=== PATIENT | female | born 1955 | race Two or more races ===

== ENCOUNTER 2021-05-02 09:41 | Inpatient (IN) | payer MEDICARE, MEDICAID ==
[2021-04-23 14:51] LABS: BASOPHILS % (AUTO) 0.7 % (0-1); EOSINOPHILS # (AUTO) 0.1 X10'3 (0-0.9); EOSINOPHILS % (AUTO) 1.6 % (0-6); LYMPHOCYTES # (AUTO) 1.7 X10'3 (1.1-4.8); LYMPHOCYTES % (AUTO) 28.4 % (21-51); MEAN CORPUSCULAR HEMOGLOBIN 31.9 PG (27.0-31.0); MEAN CORPUSCULAR HGB CONC 33.8 g/dL (33.0-36.5); MEAN CORPUSCULAR VOLUME 94.3 FL (78-98); MEAN PLATELET VOLUME 8.4 FL (7.4-10.4); MONOCYTES # (AUTO) 0.5 X10'3 (0-0.9); MONOCYTES % (AUTO) 7.8 % (2-12); NEUTROPHILS # (AUTO) 3.6 X10'3 (1.8-7.7); NEUTROPHILS % (AUTO) 61.5 % (42-75); PRE OP HEMATOCRIT 40.6 % (35.0-45.0); PRE OP HEMOGLOBIN 13.8 g/dL (12.0-16.0); PRE OP PLATELET COUNT 244 X10'3 (140-440); RED BLOOD COUNT 4.31 X10'6 (4.20-5.60)
[2021-04-23 15:06] LABS: ALBUMIN 3.4 G/DL (3.4-5.0); ALBUMIN/GLOBULIN RATIO 0.9 (1.1-1.5); ALKALINE PHOSPHATASE 107 IU/L (46-116); BLOOD UREA NITROGEN 12 MG/DL (7-18); BUN/CREATININE RATIO 15.2 (6.6-38.0); CALCIUM 8.6 MG/DL (8.5-10.1); CHLORIDE 104 MMOL/L (99-107); CREATININE 0.79 MG/DL (0.40-0.90); PRE OP ALT 26 U/L (30-65); PRE OP ANION GAP 9 (8-16); PRE OP AST 15 U/L (10-37); PRE OP BILIRUB, TOTAL 0.3 MG/DL (0.0-1.0); PRE OP GLUCOSE 112 MG/DL (70-104); PRE OP SODIUM 141 MMOL/L (135-145); TOTAL CARBON DIOXIDE 27.9 MMOL/L (24-32); TOTAL PROTEIN 7.2 G/DL (6.4-8.2); eGFR 74 ML/MIN
[2021-04-23 15:12] LABS: PRE OP POTASSIUM 3.3 MMOL/L (3.4-5.1)
[2021-05-02] VITALS (31 sets, daily range): BP systolic 112–187; BP diastolic 69–98
[~2021-05-02] VITALS: Ht 162.6 cm; Wt 79.3 kg
[~2021-05-02 09:41] MED LIST: ALEN70TA15 PO; CALC-1215 PO; DESV100T PO; NAPR-56 PO; OMEG-79 PO; OXYB5TAB16 PO; SUMA50TA17 PO; VITA400C71 PO; [UNRECOGNIZED DRUG - OTHER] PO; cefazolin/dext.iso 2gm/50ml 50 ML IV ONE; famotidine 20mg tablet PO ONE; ringers solution, lacted 1,000 ML IV SCH; tranexamic acid 1gm/0.7% sal. 100 ML IV ONE; vancomycin 1,500 MG in NS 300ml IV soln IV ONE
[2021-05-02] MEDS ORDERED: vancomycin 1,000mg inj ONE ×2 (09:52→10:48)
[2021-05-02] MEDS ORDERED: ROPIVAcaine inj 200 MG, ketorolac trometh inj. 15 MG, epiNEPHrine inj 0.6 MG, morphine ... IU ONE ×5 (10:45)
[2021-05-02 10:50] LABS: ISTAT ANION GAP 8 (8-12); ISTAT BUN 7 mg/dL (7-18); ISTAT CL 105 mmol/L (99-107); ISTAT CREATININE 0.6 mg/dL (0.6-1.1); ISTAT GLUCOSE 113 mg/dL (70-105); ISTAT HGB 12.9 g/dl (12.0-16.0); ISTAT Hct 38 %PCV (35-48); ISTAT IONIZED CALCIUM 1.03 mmol/L (1.03-1.32); ISTAT K 3.8 mmol/L (3.5-5.1); ISTAT NA 139 mmol/L (135-145); ISTAT TOTAL CO2 26 mmol/L (24-32); ISTAT eGFR > 90 ML/MIN; POC BUN/CREATININE RATIO 11.7 (6.6-38.0)
[2021-05-02] MEDS ORDERED: fentaNYL/PF 50MCG/1 ML 2ML syringe ONE ×2 (11:15→13:06)
[2021-05-02] MEDS ORDERED: MIDAZolam 1 MG/ML 5ML VIAL ONE (11:16)
[2021-05-02] MEDS ORDERED: ringers solution, lacted 1,000 ML IV SCH (11:55)
[2021-05-02] MEDS ORDERED: meperidine/PF 25mg/ml syringe IV PRN ×3 (11:55)
[2021-05-02] MEDS ORDERED: proCHLORperazine 10 MG/2 ml inj IV PRN (11:55)
[2021-05-02] MEDS ORDERED: ondansetron/PF 4mg/2ml inj IV PRN ×2 (11:55→14:05)
[2021-05-02] MEDS ORDERED: morphine 2 MG/ML inj. syringe IV PRN (11:55)
[2021-05-02] MEDS ORDERED: ROPIVAcaine 0.2% (10 MG/5 ML) BOLUS INJECTION ADDCANAL PRN (11:55)
[2021-05-02] MEDS ORDERED: propofol inj 40 ML IV ONE (13:06)
[2021-05-02] MEDS ORDERED: LIDOcaine 1%/PF 5ML 10 MG/ML VIAL ONE (13:06)
[2021-05-02] MEDS ORDERED: ROPIVAcaine 0.5% (5mg/ml) 30ml vial ONE (13:07)
[2021-05-02] MEDS ORDERED: ePHEDrine 50MG/ML INJ. ONE ×2 (13:07→13:33)
[2021-05-02] MEDS ORDERED: dexamethasone sod phosphate 4mg/ml inj. ONE (13:07)
--- NOTE | 2021-05-02 13:58 | NUR ---
Received from OR via bed, accompanied by Anesthesiologist DR. PALACIOS and report given by Anesthesiolgist AND OR NURSE. PT ARRIVED DROWSY, BREATHING UNLABORED ON ROOM AIR. 20G IV TO RIGHT HAND. VSS. RIGHT KNEE WRAPPED C/D/I WITH POWDER PACK IN PLACE. Addendum: 05/02/21 at 1417 by Lucy Sultana RN Amended: Links added.
[2021-05-02] MEDS: potassium cl 20mEq in 1/2 NS 1,000 ML IV SCH ×2 (14:05→21:10)
[2021-05-02] MEDS ORDERED: diphenhydrAMINE 25mg capsule PO PRN ×2 (14:05)
[2021-05-02] MEDS ORDERED: HYDROmorphone 1 mg/ml syringe IV PRN (14:05)
[2021-05-02] MEDS ORDERED: acetaminophen 325mg tablet PO PRN (14:05)
[2021-05-02] MEDS ORDERED: bisacodyl 10mg suppository rectal RC PRN (14:05)
[2021-05-02] MEDS ORDERED: magnesium hydroxide 30ml (MOM) UD suspension PO PRN (14:05)
[2021-05-02] MEDS: ROPIVAcaine 0.2%/PF PUMP/bolus 545 ML ADDCANAL SCH (14:24)
[2021-05-02] MEDS: morphine 4 MG/ML inj SYRINge IV PRN ×2 (15:24→16:05)
[2021-05-02] MEDS ORDERED: non-formulary drug (Alendronate Sodium (Fosamax) 1 TAB) PO SCH (16:50)
[2021-05-02] MEDS ORDERED: SUMAtriptan 25 MG tablet PO PRN (16:50)
[2021-05-02] MEDS ORDERED: tranexamic acid 1gm/0.7% sal. 100 ML IV ONE (17:00)
--- NOTE | 2021-05-02 17:08 | NUR ---
Report called to receiving nurse Paige. Transferred via BED WITH LABELED Belongings, glasses, dentures, clothing and rings that pt had on hand AND sent to room. Special Issues communicated to receiving nurse. VSS. PT APPEARED COMFORTABLE WITH MINIMAL PAIN. RIGHT KNEE BANDAGE C/D/I. PT BED LOW, 2 RAILS UP, CALL LIGHT PRESENT. RN AT BEDSIDE ASSUMING CARE. Addendum: 05/02/21 at 1719 by Lucy Sultana RN Amended: Links added.
[2021-05-02] MEDS: oxyCODONE IR 5mg (immed. release) tablet PO PRN (18:56)
[2021-05-02] MEDS ORDERED: vancomycin/NS 1 GM ADD-VANTAGE 250 ML IV SCH (20:00)
[2021-05-02] MEDS: ceFAZolin/D5W- 1GM premix 50 ML IV SCH ×2 (20:06→23:36)
[2021-05-02] MEDS: gabapentin 300mg capsule PO SCH (21:10)
[2021-05-02] MEDS: oxybutynin 5mg tablet PO SCH (21:11)
[2021-05-02] MEDS: calcium carbonate/vitamin D3 tablet PO SCH (21:11)
[2021-05-02] MEDS: acetaminophen 325mg tablet PO SCH (21:12)
[2021-05-02] MEDS: sennosides 8.6mg tablet PO SCH (21:12)
[2021-05-03] VITALS: BP 126/81
[2021-05-03] MEDS: acetaminophen 325mg tablet PO SCH ×5 (02:00→20:12)
[2021-05-03 04:00] VITALS: BP 124/69
[2021-05-03] MEDS: oxyCODONE IR 5mg (immed. release) tablet PO PRN ×2 (05:41→20:05)
--- NOTE | 2021-05-03 05:43 | NUR ---
premedicated patient prior to PT. unable to scan at that time as banquet food server was not responding.
--- NOTE | 2021-05-03 06:23 | NUR ---
Problems reprioritized. Patient report given, questions answered & plan of care reviewed with YADIRA Porras.
[2021-05-03] MEDS: potassium cl 20mEq in 1/2 NS 1,000 ML IV SCH ×3 (06:35→22:30)
[2021-05-03] MEDS ORDERED: [UNRECOGNIZED DRUG - OTHER] PO SCH (08:00)
[2021-05-03] MEDS ORDERED: enoxaparin 40mg/0.4ml syringe SQ SCH (08:00)
[2021-05-03] MEDS: venlafaxine 25mg tablet PO SCH ×3 (09:00→20:03)
[2021-05-03] MEDS: calcium carbonate/vitamin D3 tablet PO SCH ×2 (09:00→20:04)
[2021-05-03] MEDS: oxybutynin 5mg tablet PO SCH ×2 (09:00→20:04)
[2021-05-03] MEDS: gabapentin 300mg capsule PO SCH ×3 (09:00→20:04)
[2021-05-03] MEDS: HYDROmorphone inj. 0.5 MG/0.5 ML DISP.SYRIN IV PRN (09:01)
[2021-05-03 19:00] VITALS: BP 105/60
[2021-05-03] MEDS: sennosides 8.6mg tablet PO SCH (20:03)
[2021-05-03] MEDS: celeCOXIB 100mg capsule PO SCH (20:04)
[2021-05-03 23:59] VITALS: BP 110/60
[2021-05-04] MEDS: potassium cl 20mEq in 1/2 NS 1,000 ML IV SCH (06:05)
[2021-05-04] MEDS: acetaminophen 325mg tablet PO SCH ×2 (07:18→14:00)
[2021-05-04] MEDS: oxyCODONE IR 5mg (immed. release) tablet PO PRN ×2 (07:18→20:25)
[2021-05-04] MEDS: calcium carbonate/vitamin D3 tablet PO SCH ×2 (07:19→20:08)
[2021-05-04] MEDS: oxybutynin 5mg tablet PO SCH ×2 (07:19→20:08)
[2021-05-04] MEDS: venlafaxine 25mg tablet PO SCH ×3 (07:19→20:09)
[2021-05-04] MEDS: gabapentin 300mg capsule PO SCH ×3 (07:21→20:09)
[2021-05-04] MEDS: celeCOXIB 100mg capsule PO SCH ×2 (07:21→20:08)
[2021-05-04] MEDS ORDERED: enoxaparin 30mg/0.3ml syringe SUBCUT SCH (08:00)
[2021-05-04] MEDS: ROPIVAcaine 0.2%/PF PUMP/bolus 545 ML ADDCANAL SCH (14:00)
[2021-05-04] MEDS ORDERED: acetaminophen 325mg tablet PO PRN (14:05)
[2021-05-04 20:00] VITALS: BP 127/74
[2021-05-04] MEDS: sennosides 8.6mg tablet PO SCH (20:09)
[2021-05-05] VITALS: BP 122/58
--- NOTE | 2021-05-05 06:20 | NUR ---
Problems reprioritized. Patient report given, questions answered & plan of care reviewed with YADIRA Porras .
[2021-05-05 07:00] VITALS: BP 117/72
[2021-05-05] MEDS: celeCOXIB 100mg capsule PO SCH ×2 (07:19→20:13)
[2021-05-05] MEDS: oxybutynin 5mg tablet PO SCH ×2 (07:19→20:10)
[2021-05-05] MEDS: venlafaxine 25mg tablet PO SCH ×3 (07:19→20:10)
[2021-05-05] MEDS: calcium carbonate/vitamin D3 tablet PO SCH ×2 (07:19→20:11)
[2021-05-05] MEDS: gabapentin 300mg capsule PO SCH ×3 (07:19→20:11)
[2021-05-05] MEDS: oxyCODONE IR 5mg (immed. release) tablet PO PRN ×2 (07:19→19:28)
[2021-05-05] MEDS: HYDROmorphone inj. 0.5 MG/0.5 ML DISP.SYRIN IV PRN (11:53)
[2021-05-05 12:55] VITALS: BP 112/70
--- NOTE | 2021-05-05 18:22 | NUR ---
Patient in room [address]. I have received report from EMELY ALCANTARA RN and had the opportunity to ask questions and assume patient care. Addendum: 05/05/21 at 1823 by Viki Wallace RN Amended: Links added.
--- NOTE | 2021-05-05 19:35 | NUR ---
pt c/o constipation wants to hold off pain med due to it ate very little of tray due to this and given per request a brown jatin prune juice mix to drink. Addendum: 05/06/21 at 0132 by Viki Wallace RN wrong pt she had a bm this am took hs meds no complaints at this time.
[2021-05-05 19:40] VITALS: BP 131/74
[2021-05-05] MEDS: sennosides 8.6mg tablet PO SCH (20:10)
--- NOTE | 2021-05-05 20:30 | NUR ---
pt used bedpan it leaked hs care done and repositioned in bed for comfort after liens changed.
[2021-05-06 00:22] VITALS: BP 143/75
--- NOTE | 2021-05-06 00:25 | NUR ---
up with assist of one and walker [place] [facility] [place] no results passed flatus. back to bed given a second brown jatin prune juice warm mix per request and will try again around 5am per pt request. voiding well in urinal without issues. Addendum: 05/06/21 at 0131 by Viki Wallace RN note on wrong pt she is resting eyes closed without s&s of distress appears comfortable at this time. vss.
--- NOTE | 2021-05-06 06:10 | NUR ---
Problems reprioritized. Patient report given, questions answered & plan of care reviewed with LARISSA MAY. Addendum: 05/06/21 at 0611 by Viki Wallace RN Amended: Links added.
--- NOTE | 2021-05-06 06:24 | NUR ---
Patient in room [address]. I have received report from Viki amaya and had the opportunity to ask questions and assume patient care.
[2021-05-06 06:34] VITALS: BP 118/74
[2021-05-06] MEDS: calcium carbonate/vitamin D3 tablet PO SCH (07:23)
[2021-05-06] MEDS: celeCOXIB 100mg capsule PO SCH (07:23)
[2021-05-06] MEDS: oxybutynin 5mg tablet PO SCH (07:23)
[2021-05-06] MEDS: gabapentin 300mg capsule PO SCH ×2 (07:23→13:09)
[2021-05-06] MEDS: venlafaxine 25mg tablet PO SCH ×2 (07:23→13:08)
[2021-05-06] MEDS: oxyCODONE IR 5mg (immed. release) tablet PO PRN ×3 (07:34→17:42)
[2021-05-06] MEDS ORDERED: aspirin 81mg, enteric-coated 1 TAB TABLET.DR PO SCH (08:00)
[2021-05-06 11:00] VITALS: BP 113/62
[2021-05-06] MEDS: ROPIVAcaine 0.2%/PF PUMP/bolus 545 ML ADDCANAL SCH ×2 (11:55→17:43)
--- NOTE | 2021-05-06 13:07 | NUR ---
Initial: Pt s/p total arthroplasty of R knee 05/02. Pt currently on Regular diet eating mostly 75% of meals meeting needs. LBM 05/05 receiving routine senna. High protein diet education w/ RD contact info placed in pt chart as pt unavailable at time of assessment. No nutrition intervention implemented at this time, will continue to monitor. Recs: 1. Continue Regular diet as tolerated 2. Bowel care per rx 3. Weekly wts Addendum: 05/06/21 at [address] Amended: Links added.
--- NOTE | 2021-05-06 17:17 | NUR ---
pt stated she is OK with waiting till tomorrow to get pain med prescription from Dr. Bunch. I Educated pt on how to use the ON Q pump and how she can titrate it up and down as needed for pain.
--- NOTE | 2021-05-06 17:54 | NUR ---
pt IV is DC and cannula intact, all discharge info gone over with pt, discussed with pt about getting prescription from dr cartwright for pain Friday, pt was ok with this, no further questions, all education printed and sent home, pt belongings were all gathered and sent. pt was stable for discharge. and wheeled down to lobby by aide and picked up in a private vehicle by family.
--- NOTE | 2021-05-06 17:57 | NUR ---
pt On Q was changed before discharge and dressing was changed as well. surgical wound was clean dry and intact.
== END 2021-05-06 18:01 | disposition home or self-care (01) | DRG 470 ==
LOC: PAS IN 09:41 → UNDOADMIN 09:41 → PAS IN 14:07 → SUR 3N 17:39 → PAS IN 17:39
PROVIDERS: ADMIT Orthopaedic Surgery; ATTEND Orthopaedic Surgery
PROC: 3E0T3BZ Introduction of Anesthetic Agent into Peripheral Nerves and Plexi, Percutaneous Approach (ICD-10-PCS; 2021-05-02)
PROC: 0SRC0J9 Replacement of Right Knee Joint with Synthetic Substitute, Cemented, Open Approach (ICD-10-PCS; principal; 2021-05-02 11:16)
DX: M17.11 Unilateral primary osteoarthritis, right knee (principal); M81.0 Age-related osteoporosis without current pathological fracture
CPT/HCPCS: 36415; 73560; 80047; 80053; 82948; 84443; 85025; 87081; 93005; 97110; 97116; 97161; 97530; A4215; A7000; C1713; C1776; C9250; G0378; J0690; J1100; J1170; J1650; J2175; J2250; J2270; J2704; J2795; J3010; J3370; J3480; J7040; J7120; Q0163; U0003; U0005